=== PATIENT | male | born 1950 | race Caucasian/White ===

== ENCOUNTER 2016-08-15 10:17 | Outpatient (CLI) | payer MEDICARE, OTHER | END 2016-08-15 10:18 | disposition home or self-care (01) | DX: G47.33 Obstructive sleep apnea (adult) (pediatric) (principal) | CPT/HCPCS: 99213; G0463 ==

== ENCOUNTER 2016-08-25 22:00 | Outpatient (CLI) | payer MEDICARE, OTHER | END 2016-08-25 22:01 | disposition home or self-care (01) | DX: Z53.9 Procedure and treatment not carried out, unspecified reason (principal) ==

== ENCOUNTER 2016-10-17 14:42 | Outpatient (CLI) | payer MEDICARE, OTHER | END 2016-10-17 14:43 | disposition home or self-care (01) | DX: G47.33 Obstructive sleep apnea (adult) (pediatric) (principal) | CPT/HCPCS: 99214; G0463 ==

== ENCOUNTER 2018-06-04 13:16 | Outpatient (CLI) | payer MEDICARE, OTHER ==
--- NOTE | 2018-06-05 11:39 | DEXA Report ---
Reason: OSTEOPENIA Procedure Date: 06/04/2018 Accession Number: [id number] / [id number] Procedure: DEX - Dexa Spine and/or Hip CPT Code: FULL RESULT: EXAM: Dexa Spine and/or Hip DATE: 06/04/2018 2:01 PM CLINICAL HISTORY: OSTEOPENIA TECHNIQUE: Dual energy x-ray absorptiometry (DXA) was performed on a [employer] System. Regions measured are the AP Spine, femoral neck, and if needed forearm. COMPARISON: None. In accordance with the International Society for Clinical Densitometry (ISCD) guidelines, data from previous exams may be reanalyzed using current recommendations and techniques. This is done to allow a more accurate basis for comparison with the current study. FINDINGS: The data for the lumbar spine is as follows: BMD (g/cm/cm) T-SCORE Z-SCORE REGION L1 1.148 -0.1 -0.4 L2 1.159 -0.7 -0.9 L3 1.107 -1.1 -1.4 L4 1.052 -1.6 -1.8 TOTAL 1.116 -0.9 -1.1 NOTE: All evaluable vertebrae are used for classification The data for the hip is as follows: BMD (g/cm/cm) T-SCORE Z-SCORE REGION Neck 1.052 -0.1 0.5 TOTAL 1.054 -0.3 -0.2 NOTE: The femoral neck or total proximal femur, whichever is lowest, is used for classification. IMPRESSION: THE WHO CLASSIFICATION BASED ON THE INTERNATIONAL REFERENCE STANDARD IS NORMAL. THE FRACTURE RISK IS NOT INCREASED. RECOMMENDATION: Patients with diagnosis of osteoporosis or osteopenia should have regular bone mineral density assessment. For those eligible for Medicare, routine testing is allowed once every 2 years. Testing frequency can be increased for patients who have rapidly progressing disease or for those who are receiving medical therapy to restore bone mass. COMMENT: World Health Organization (WHO) definitions for osteoporosis and osteopenia: NORMAL BMD: T-score at -1.0 or higher, fracture risk is low OSTEOPENIA BMD: T-score between -1.0 and -2.5, fracture risk is increased. OSTEOPOROSIS BMD: T-score at -2.5 or lower, fracture risk is high. National Osteoporosis Foundation recommends: 1. Obtain adequate dietary calcium (at least 1200 mg per day) and vitamin D (400-800 international units per day). 2. Participate, as appropriate, in regular weightbearing and muscle-strengthening exercise. 3. Avoid tobacco use and reduce alcohol and caffeine intake. 4. For more detailed information see the website at www.NOF.org.
== END 2018-06-04 13:17 | disposition home or self-care (01) ==
LOC: DI 13:16
PROVIDERS: ATTEND Internal Medicine
DX: M85.89 Other specified disorders of bone density and structure, multiple sites (principal); M16.9 Osteoarthritis of hip, unspecified; Z79.83 Long term (current) use of bisphosphonates
CPT/HCPCS: 77080

== ENCOUNTER 2018-07-22 08:03 | Emergency (ER) | payer MEDICARE, OTHER ==
[2018-07-22 08:09] VITALS: BP 147/81
--- NOTE | 2018-07-22 08:29 | ED Physician Documentation ---
History of Present Illness - Stated complaint Stated Complaint: EAR PAIN - Chief complaint Chief Complaint: Heent - Additonal information Additional information: hx from pt 68 male to ED with L ear pain no fever cough body aches hx sinus issues int takes flonase and sudafed Review of Systems Constitutional: denies: Fever Ears: reports: Ear pain Nose: denies: Sinus pressure / pain (chronic drainage) Respiratory: denies: Cough Immunocompromised: denies: Immunocompromised PD PAST MEDICAL HISTORY - Present Medications Home Medications: Ambulatory Orders Medication Instructions Recorded Confirmed Amoxicillin 500 mg PO Q8HR #30 capsule 07/22/18 Aspirin [Aspirin EC] 81 mg PO DAILY 07/22/18 07/22/18 Simvastatin 40 mg PO DAILY 07/22/18 07/22/18 - Allergies Allergies/Adverse Reactions: Allergies Allergy/AdvReac Type Severity Reaction Status Date / Time No Known Drug Allergies Allergy Verified 07/22/18 08:09 PD ED PE NORMAL - Vitals Vital signs reviewed: Yes - General General: Alert and oriented X 3 - HEENT HEENT: No: Ears normal (R TM benigh, L with purulent fluid layering out, eythema to posterior 1/3, dull, loss of landmarks) - Cardiac Cardiac: RRR - Respiratory Respiratory: No respiratory distress, Clear bilaterally Results - Vitals Vitals: Vital Signs - 24 hr 07/22/18 08:07 Temperature 35.8 C L Heart Rate 73 Respiratory 12 Rate Blood Pressure 147/81 H O2 Saturation 97 Oxygen O2 Source Room air Departure - Departure Disposition: 01 Home, Self Care Clinical Impression: Otitis media Qualifiers: Otitis media type: suppurative Chronicity: acute Laterality: left Recurrence: not specified as recurrent Spontaneous tympanic membrane rupture: without spontaneous rupture Qualified Code(s): H66.002 - Acute suppurative otitis media without spontaneous rupture of ear drum, left ear Condition: Good Instructions: ED Otitis Media Acute Adult Follow-Up: Rustam Alarcon MD [Primary Care Provider] - Prescriptions: Amoxicillin 500 mg PO Q8HR #30 capsule Comments: Please use your flonase and sudafed to help clear the Eustachian tube and relieve the pressure. Motrin or tylenol as needed for the pain Recommend eating yogurt or taking a probiotic while on the amoxicillin to prevent diarrhea
== END 2018-07-22 08:42 | disposition home or self-care (01) ==
LOC: ED 08:03
DX: H66.002 Acute suppurative otitis media without spontaneous rupture of ear drum, left ear (principal)
CPT/HCPCS: 99283

== ENCOUNTER 2020-04-03 08:55 | Emergency (ER) | payer MEDICARE, OTHER ==
--- NOTE | 2020-04-03 09:36 | ED Physician Documentation ---
PD HPI HEENT - Stated complaint Stated Complaint: L EAR PX - Chief complaint Chief Complaint: Heent - History obtained from History obtained from: Patient - History of Present Illness Timing - onset: How many weeks ago (1) Timing - duration: Weeks (1) Timing - details: Gradual onset, Still present Location: Left ear Associated symptoms: Congestion. No: Fever, Rhinorrhea, Swollen nodes Recently seen: Not recently seen Review of Systems Constitutional: denies: Fever, Chills Ears: reports: Loss of hearing (mild), Ear pain. denies: Drainage/discharge, Tinnitus/ringing Nose: reports: Congestion. denies: Rhinorrhea / runny nose Throat: denies: Sore throat Respiratory: denies: Cough PD PAST MEDICAL HISTORY - Past Medical History Past Medical History: Yes Cardiovascular: High cholesterol Respiratory: None Neuro: None Endocrine/Autoimmune: None GI: None : None HEENT: None Psych: None Musculoskeletal: None Derm: None - Past Surgical History Past Surgical History: Yes Ortho: Hip replacement, Other Derm: Skin cancer surgery - Present Medications Home Medications: Ambulatory Orders Medication Instructions Recorded Confirmed Amoxicillin 500 mg PO Q8HR #30 capsule 07/22/18 Aspirin [Aspirin EC] 81 mg PO DAILY 07/22/18 07/22/18 Simvastatin 40 mg PO DAILY 07/22/18 07/22/18 Cephalexin [Keflex] 500 mg PO TID #20 capsule 04/03/20 Cetirizine [ZyrTEC] 10 mg PO DAILY #15 tablet 04/03/20 Naproxen 375 mg PO TID #15 tablet 04/03/20 - Allergies Allergies/Adverse Reactions: Allergies Allergy/AdvReac Type Severity Reaction Status Date / Time No Known Drug Allergies Allergy Verified 07/22/18 08:09 - Social History Does the pt smoke?: No Smoking Status: Never smoker Does the pt drink ETOH?: No Does the pt have substance abuse?: No - Immunizations Immunizations are current?: Yes PD ED PE NORMAL - Vitals Vital signs reviewed: Yes - General General: Alert and oriented X 3, No acute distress, Well developed/nourished - HEENT HEENT: Moist mucous membranes, Pharynx benign. No: Ears normal (right is normal; left with redness and inflammation of the TM. Canal with some wax but not occlusive and TM still mostly visible.) - Neck Neck: Supple, no meningeal sign, No adenopathy - Cardiac Cardiac: RRR, No murmur - Respiratory Respiratory: Clear bilaterally Results - Vitals Vitals: Vital Signs - 24 hr 04/03/20 04/03/20 09:20 10:09 Temperature 36 C L Heart Rate 70 71 Respiratory 16 20 Rate Blood Pressure 134/86 H 111/97 H O2 Saturation 100 97 Oxygen O2 Source Room air PD MEDICAL DECISION MAKING - ED course Complexity details: considered differential, d/w patient Departure - Departure Disposition: Home, Self Care Clinical Impression: Otitis media Qualifiers: Otitis media type: suppurative Chronicity: acute Laterality: left Recurrence: non-recurrent Spontaneous tympanic membrane rupture: without spontaneous rupture Qualified Code(s): H66.002 - Acute suppurative otitis media without spontaneous rupture of ear drum, left ear Condition: Stable Record reviewed to determine appropriate education?: Yes Instructions: ED Otitis Media Acute Adult Follow-Up: Rustam Alarcon MD [Primary Care Provider] - Prescriptions: Cephalexin [Keflex] 500 mg PO TID #20 capsule Naproxen 375 mg PO TID #15 tablet Cetirizine [ZyrTEC] 10 mg PO DAILY #15 tablet Comments: You do have some wax buildup in the canal but not significant to be causing a problem. You could product picker some earwax drops [id number] and use him daily for a few days to soften the wax but otherwise it is okay. The problem does seem to be an infection of the eardrum and fluid buildup behind it. Use cephalexin 3 times a day for a week and cetirizine antihistamine daily for 1 to 2 weeks. Add naproxen anti-inflammatory twice daily for a week as well. Recheck if not improving well over the next few days and resolved within 3 to 5 days. Return if worsening Discharge Date/Time: 04/03/20 10:11
[2020-04-03] MEDS ORDERED: CETIRIZINE 10 MG TABLET PO STA (09:54)
[2020-04-03] MEDS ORDERED: cephALEXin 250 MG CAPSULE PO STA (09:54)
[2020-04-03] MEDS ORDERED: CHERRY SYRUP 10 ML UDC PO ONE (09:54)
[2020-04-03] MEDS ORDERED: DEXAMETHASONE 10 MG/ML VIAL PO STA (09:54)
[2020-04-03 10:13] VITALS: BP 111/97
== END 2020-04-03 10:11 | disposition home or self-care (01) ==
LOC: ED 08:55
DX: H66.002 Acute suppurative otitis media without spontaneous rupture of ear drum, left ear (principal)
CPT/HCPCS: 99283; A9270

== ENCOUNTER 2021-06-03 09:34 | Outpatient (CLI) | payer MEDICARE, OTHER ==
--- NOTE | 2021-06-03 11:20 | DEXA Report ---
PROCEDURE: Dexa Spine and/or Hip INDICATIONS: OSTEOPENIA TECHNIQUE: Dual energy x-ray absorptiometry (DXA) was performed on a [employer] System. Regions measur ed are the AP Spine, femoral neck, and if needed forearm. COMPARISON: 06/04/2018 FINDINGS: Lumbar Spine: Bone Mineral Density 1.230 g/cm/cm,T score -0.1, normal bone mineral density Left Femoral Neck: Bone Mineral Density 1.063 g/cm/cm, T score -0.3, normal bone density (T score greater or equal to -1.0: NORMAL) (T score from -1.1 to -2.4: OSTEOPENIA) (T score less than or equal to -2.5 to: OSTEOPOROSIS) Impression: Normal bone mineral density. Patients with diagnosis of osteoporosis or osteopenia should have regular bone mineral density assess ment. For those eligible for Medicare, routine testing is allowed once every 2 years. Testing frequ ency can be increased for patients who have rapidly progressing disease or for those who are receivin g medical therapy to restore bone mass. Reviewed by: Tamir Westfall MD on 06/03/2021 11:19 AM PDT Approved by: Tamir Westfall MD on 06/03/2021 11:19 AM PDT Station ID: [id number]
== END 2021-06-03 09:35 | disposition home or self-care (01) ==
LOC: DI 09:34
PROVIDERS: ATTEND Internal Medicine
DX: M85.88 Other specified disorders of bone density and structure, other site (principal)